=== PATIENT | female | born 1950 | race Caucasian/White ===

== ENCOUNTER 2016-09-17 08:02 | Day surgery (SDC) | payer MEDICARE, OTHER ==
--- NOTE | ~2016-09-17 | OP ---
Record Of Operation [facility] [address] [place] [address] NAME: OPHELIA QUINN : 52 STATUS : [facility]#: [id number] AGE: 66 ADM/REG DATE : 09/17/16 MR#: [id number] REPORT SERV DATE: 09/20/16 DICTATED BY: OG ARENAS DATE: 09/17/16 REPORT STATUS : Draft TRANSCRIBED BY: MODL DATE: 09/17/16 DATE OF PROCEDURE: 09/17/2016 PROCEDURE: EGD and dilatation. INDICATION: History of dysphagia. SEDATION: Diprivan. FINDING: Olympus video scope was passed into the hypopharynx which was normal. There was a mild stricture at the EG junction with no esophagitis. At the gastric cardia seen best on retroflexion, was a remnant of the previous polyp probably measuring 5 mm. There was some erosion on the surface. There was some antral vascular ectasias present. Duodenum was normal. Retroflexed fundus was otherwise normal. 54 dilator was passed without resistance. IMPRESSION: 1. Mild distal stricture dilated to 54-Romansh. 2. Some remnant of the previous polyp resected in 01/2016. PLAN: 1. Observe response to dilatation. 2. Change scheduled PPI. 3. May go back at some point and resect the rest of the polyp. MG/YURIDIA Og Arenas M.D. / [id number] CC: Manolo Temple M.D.
--- NOTE | ~2016-09-17 | EGD ---
EGD REPORT [facility] [address] [address] NAME: OPHELIA APPLE : 52 STATUS : REG [facility]#: [id number] AGE: 66 ADM/REG DATE : 09/17/16 MR#: [id number] REPORT SERV DATE: 09/17/16 DICTATED BY: OG ARENAS DATE: 09/17/16 REPORT STATUS : Draft TRANSCRIBED BY: [facility] DATE: 09/17/16 Endoscopy Center Patient Name: Ophelia Apple Date of : 1950 Attending MD: OG ARENAS MD Procedure Date No Time: 09/17/2016 Procedure: Upper GI endoscopy Indications: Dysphagia Referring MD: ENEDINA MURRAY Medicines: Propofol per Anesthesia Complications: No immediate complications. Procedure: Pre-Anesthesia Assessment: - ASA Grade Assessment: III - A patient with severe systemic disease. After obtaining informed consent, the endoscope was passed under direct vision. Throughout the procedure, the patient's blood pressure, pulse, and oxygen saturations were monitored continuously. The GIF [id number] was introduced through the mouth, and advanced to the third part of duodenum. The upper GI endoscopy was accomplished without difficulty. The patient tolerated the procedure well. Findings: A benign-appearing, intrinsic mild stenosis was found at the gastroesophageal junction and was traversed. A guidewire was placed and the scope was withdrawn. Dilation was performed with a Savary dilator with no resistance at 54 Fr. One 5 mm sessile polyp with no bleeding and no stigmata of recent bleeding was found in the cardia. The examined duodenum was normal. see dictated note on same day for further details Impression: - Benign-appearing esophageal stricture. Dilated. - One gastric polyp. - Normal examined duodenum. Recommendation: - The patient will be observed post-procedure, until all discharge criteria are met. - Return to previous diet today. - Continue present medications. - The findings and recommendations were discussed with the patient and their family. - After the procedure, if you experience any pain in abdomen or chest,shortness of breath,fever,chills,blood EGD REPORT [address] [place]. [address] NAME: OPHELIA APPLE : 52 STATUS : REG [facility]#: [id number] AGE: 66 ADM/REG DATE : 09/17/16 MR#: [id number] REPORT SERV DATE: 09/17/16 DICTATED BY: OG ARENAS. DATE: 09/17/16 REPORT STATUS : Draft TRANSCRIBED BY: [employer] [facility] DATE: 09/17/16 in stool,rectal bleeding,vomiting of any material,nausea,black stools or weakness or dizziness, GO TO THE EMERGENCY IMMEDIATELY!!!!!!!!! Procedure Code(s): --- Professional --- 85044, Esophagogastroduodenoscopy, flexible, transoral; with insertion of guide wire followed by passage of dilator(s) through esophagus over guide wire Diagnosis Code(s): --- Professional --- K22.2, Esophageal obstruction K31.7, Polyp of stomach and duodenum R13.10, Dysphagia, unspecified CPT copyright 2013 [employer]. All rights reserved. The codes documented in this report are preliminary and upon general farmworker review may be revised to meet current compliance requirements. Og Arenas MD OG ARENAS MD 09/17/2016 10:16 AM This report has been signed electronically. Number of Addenda: 0 Note Initiated On: 09/17/2016 9:44 AM Scope Withdrawal Time 0 hours 0 minutes 0 seconds [id number] [place] [address]
[~2016-09-17 08:02] MED LIST: ALDACTAZID25 MG/25 M PO; ALEVE220 MG PO; AMB10 PO; ARMOUR THYRO180 MG PO; AT25 PO; ATEN50 PO; B-12 SC; B121000P IM; CENTRUM PO; CENTRUM TAB1 TAB PO; CIP5 PO; COMP10B PO; COQ10100 MG PO; DELESTROGEN40 MG/ML IM; DIFICID 200 MG200 MG PO; ENTYVIO; ESTROGEN; FLORASTOR250 MG PO; FOLIC PO; GINGER ROOT CAPSULE PO; HCTZ25B PO; HORMONE COMPOUND T; HUMIRA SC; KLOR-CON M2020 MEQ PO; LASIX PO; LEXAPRO20 PO; LIBRAX PO; LIPITOR20 PO; LOM PO; LOP25 PO; LORT7 PO; MACRODANTIN 10100 MG PO; MAGOX4 PO; MELATONIN1 M1 PO; METHOC750B PO; MOBIC7.5 PO; NAP500 PO; NEUR300 PO; NEUR600 PO; NITROQUICK0.4 MG SL; NORV5 PO; P10 PO; PAXIL30 MG PO; PERCOCET1 TA4 PO; PR25 PO; PRILO PO; PRILOSEC40 MG PO; REMICADE IV; REMICADE100 MG IV; SPIRO25 PO; SULFAZINE500 MG PO; SYNTHROID175 MCG PO; SYNTHROID200 MCG PO; TOPXL50 PO; ULTRAM50 PO; V180SR PO; VANCOCIN HCL125 MG PO; VITAMIN D PO; VITAMIN D31000 UNIT PO; VITD PO; X5 PO; Z300 PO; [UNRECOGNIZED DRUG - CODE] IM
== END 2016-09-17 23:59 | disposition home or self-care (01) ==
LOC: DMU 08:02
PROVIDERS: Internal Medicine Gastroenterology
PROC: 0D747ZZ Dilation of Esophagogastric Junction, Via Natural or Artificial Opening (ICD-10-PCS; principal; 2016-09-17 09:30)
DX: K22.2 Esophageal obstruction (principal); K31.7 Polyp of stomach and duodenum; I50.9 Heart failure, unspecified; I25.10 Atherosclerotic heart disease of native coronary artery without angina pectoris; E66.01 Morbid (severe) obesity due to excess calories; G47.33 Obstructive sleep apnea (adult) (pediatric); M35.00 Sjogren syndrome, unspecified; D64.9 Anemia, unspecified; F32.9 Major depressive disorder, single episode, unspecified; E03.9 Hypothyroidism, unspecified; N87.9 Dysplasia of cervix uteri, unspecified; I49.9 Cardiac arrhythmia, unspecified; I11.0 Hypertensive heart disease with heart failure; I50.30 Unspecified diastolic (congestive) heart failure; M19.90 Unspecified osteoarthritis, unspecified site; M81.0 Age-related osteoporosis without current pathological fracture; M79.7 Fibromyalgia; R25.1 Tremor, unspecified; G43.909 Migraine, unspecified, not intractable, without status migrainosus; D36.10 Benign neoplasm of peripheral nerves and autonomic nervous system, unspecified; K50.90 Crohn's disease, unspecified, without complications; K44.9 Diaphragmatic hernia without obstruction or gangrene; Z98.891 History of uterine scar from previous surgery; Z90.710 Acquired absence of both cervix and uterus; Z98.41 Cataract extraction status, right eye; Z98.42 Cataract extraction status, left eye; Z96.1 Presence of intraocular lens; Z98.51 Tubal ligation status; Z90.49 Acquired absence of other specified parts of digestive tract; Z90.89 Acquired absence of other organs; Z88.5 Allergy status to narcotic agent; Z88.8 Allergy status to other drugs, medicaments and biological substances